=== PATIENT | male | born 1985 | race Caucasian/White ===

== ENCOUNTER 2022-09-15 20:57 | Emergency (ER) | payer SELFPAY ==
[2022-09-15 21:15] VITALS: BP 167/103; PULSE 88; RESP 16; TEMP 98.1
[2022-09-15] MEDS ORDERED: LIDOCAINE 1% INJ 10MG/ML (30 ML VIAL-PF) SQ ONE (22:06)
[2022-09-15] MEDS ORDERED: DIPH,PERTUS(ACELL)TETVAC-LF 0.5 ML VIAL IM ONE (22:48)
--- NOTE | 2022-09-15 23:14 | ED ---
General Adult HPI - General Chief complaint: Skin/Abscess/Foreign Body Stated complaint: Left Ring finger injury Time Seen by Provider: 09/15/22 22:00 Source: patient Mode of arrival: ambulatory Limitations: no limitations - History of Present Illness Initial comments: A 37-year-old male presenting to the ED with a chief complaint of fishhook to left fourth finger. Patient states he was trying to unhook his face and states that the fish flopped causing the "on the other line become embedded into his left fourth finger. Tetanus status unknown. Denies any other injury at this time. No other complaints. - Related Data Previous Rx's Medication Instructions Recorded Cephalexin [Keflex] 500 mg PO Q6HR 5 Days #20 cap 09/15/22 Allergies Allergy/AdvReac Type Severity Reaction Status Date / Time No Known Allergies Allergy Verified 09/15/22 21:15 Review of Systems ROS Statement: Those systems with pertinent positive or pertinent negative responses have been documented in the HPI. ROS Other: All systems not noted in ROS Statement are negative. Past Medical History Additional Past Medical History / Comment(s): vertigo History of Any Multi-Drug Resistant Organisms: None Reported Past Surgical History: No Surgical Hx Reported Past Psychological History: No Psychological Hx Reported Smoking Status: Never smoker Past Alcohol Use History: Rare Past Drug Use History: None Reported General Exam Limitations: no limitations General appearance: alert, in no apparent distress Head exam: Present: atraumatic, normocephalic Respiratory exam: Present: normal lung sounds bilaterally Cardiovascular Exam: Present: regular rate, normal rhythm Extremities exam: Present: other (Paullina in patient's left fourth finger. Strength and sensation intact. Full active flexion.) Neurological exam: Present: alert, oriented X3 Psychiatric exam: Present: normal affect, normal mood Skin exam: Present: warm, dry Course Vital Signs 09/15/22 21:12 Temperature 98.1 F Pulse Rate 88 Respiratory 16 Rate Blood Pressure 167/103 O2 Sat by Pulse 98 Oximetry Procedures - Forgein Body Removal Soft Tissue Site: other (Finger, left fourth) Anesthetic Used: lidocaine 1%, without epi Amount (mLs): 4 (Provided nerve block and local infiltration.) Foreign Body Suspected: Fish Hook Foreign Body Removed: yes Foreign Body Removal Technique: Other (Small incision made with scalpel. Fish hook removed) Patient Tolerated Procedure: well, no complications Additional Comments: 1 simple interrupted suture placed with 5-0 Ethilon. Medical Decision Making - Medical Decision Making Was pt. sent in by a medical professional or institution ([facility], [facility], urgent care, hospital, or prison...) When possible be specific @ -No Did you speak to anyone other than the patient for history (EMS, parent, family, police, friend...)? What history was obtained from this source @ -No Did you review nursing and triage notes (agree or disagree)? Why? @ -I reviewed and agree with nursing and triage notes Were old charts reviewed (outside hosp., previous admission, EMS record, old EKG, old radiological studies, urgent care reports/EKG's, prison records)? Report findings @ -No old charts were reviewed Differential Diagnosis (chest pain, altered mental status, abdominal pain women, abdominal pain men, vaginal bleeding, weakness, fever, dyspnea, syncope, headache, dizziness, GI bleed, back pain, seizure, CVA, palpatations, mental health, musculoskeletal)? @ -Acute tendon injury, infection. This is not meant to be an all-inclusive list. EKG interpreted by me (3pts min.). @ -None X-rays interpreted by me (1pt min.). @ -None done CT interpreted by me (1pt min.). @ -None done U/S interpreted by me (1pt. min.). @ -None done What testing was considered but not performed or refused? (CT, X-rays, U/S, labs)? Why? @ -None What meds were considered but not given or refused? Why? @ -None Did you discuss the management of the patient with other professionals (professionals i.e. [facility], [facility], lab, RT, psych nurse, social group worker, wrapping machine helper, teacher, chief talent officer, case packer and sealer)? Give summary @ -No Was smoking cessation discussed for >3mins.? @ -No Was critical care preformed (if so, how long)? @ -No Were there social determinants of health that impacted care today? How? (Homelessness, low income, unemployed, alcoholism, drug addiction, transportation, low edu. Level, literacy, decrease access to med. care, half-way, rehab)? @ -No Was there de-escalation of care discussed even if they declined (Discuss DNR or withdrawal of care, Hospice)? DNR status @ -No What co-morbidities impacted this encounter? (DM, HTN, Smoking, COPD, CAD, Cancer, CVA, ARF, Chemo, Hep., AIDS, mental health diagnosis, sleep apnea, morbid obesity)? @ -None Was patient admitted / discharged? Hospital course, mention meds given and route, prescriptions, significant lab abnormalities, going to OR and other pertinent info. @ -Discharge. Patient had a foreign body removed please see procedure note for further details. Tetanus updated. Provided antibiotic prophylaxis. Discussed return precautions with patient and patient's who verbalizes agreement. Undiagnosed new problem with uncertain prognosis? @ -No Drug Therapy requiring intensive monitoring for toxicity (Heparin, Nitro, Insulin, Cardizem)? @ -No Were any procedures done? @ -Yes, Please see procedure note further details Diagnosis/symptom? @ -Paullina in left fourth finger Acute, or Chronic, or Acute on Chronic? @ -Acute Uncomplicated (without systemic symptoms) or Complicated (systemic symptoms)? @ -Uncomplicated Side effects of treatment? @ -No Exacerbation, Progression, or Severe Exacerbation? @ -No Poses a threat to life or bodily function? How? (Chest pain, [place], [place], pneumonia, PE, COPD, DKA, ARF, appy, cholecystitis, CVA, Diverticulitis, Homicidal, Suicidal, threat to staff... and all critical care pts) @ -No Disposition Clinical Impression: Fish hook injury of finger of left hand Disposition: HOME SELF-CARE Condition: Good Instructions (If sedation given, give patient instructions): Care For Your Stitches (ED) Prescriptions: Cephalexin [Keflex] 500 mg PO Q6HR 5 Days #20 cap Is patient prescribed a controlled substance at d/c from ED?: No Referrals: None,Stated [Primary Care Provider] - 1-2 days Time of Disposition: 23:16
[2022-09-15] MEDS ORDERED: CEPHALEXIN 500MG STARTER PACK 4 CAP BTL PO STA (23:28)
[2022-09-15] MEDS ORDERED: BACITRACIN OINT 1 EACH PACKET TOPICAL ONE (23:36)
== END 2022-09-15 23:41 | disposition home or self-care (01) ==
LOC: EC 20:57
DX: S60.945A Unspecified superficial injury of left ring finger, initial encounter (principal); W45.8XXA Other foreign body or object entering through skin, initial encounter
CPT/HCPCS: 90715; 99282; 10120; 90471; J2001

== ENCOUNTER 2023-04-18 10:12 | Emergency (ER) | payer OTHER ==
[2023-04-18 10:28] VITALS: RESP 18; TEMP 97.4
[2023-04-18] MEDS ORDERED: KETOROLAC 15 MG/ML 1 ML VIAL IM STA (10:31)
--- NOTE | 2023-04-18 10:33 | ED ---
Back Pain HPI - General Chief Complaint: Back Pain/Injury Stated Complaint: Back Pain Time Seen by Provider: 04/18/23 10:23 Source: patient, family, RN notes reviewed Limitations: no limitations - History of Present Illness Initial Comments: Patient is a 37-year-old male presented to ER with chief complaint of back pain. 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 Patient states over the past couple days pain has increased. No known injuries or traumas. Patient states there is radiating pain down his left leg. He states that he is not able to walk due to the pain. Patient had to have 2 staff members help him out of the car into the ER today. Patient has been taking [id number] pain medication and prescribed Flexeril with no relief. Patient was scheduled to get an MRI of his back today but stated he was unable to make it due to the pain. Seeing Dr. Hobbs. Patient denies any fevers, history of IV drug use, saddle paresthesias, bowel or bladder incontinence. - Related Data Previous Rx's Medication Instructions Recorded Cephalexin [Keflex] 500 mg PO Q6HR 5 Days #20 cap 09/15/22 Lidocaine 4% Patch 1 patch TOPICAL DAILY #10 patch 04/18/23 predniSONE 50 mg PO DAILY #5 tab 04/18/23 Allergies Allergy/AdvReac Type Severity Reaction Status Date / Time No Known Allergies Allergy Verified 04/18/23 10:20 Review of Systems ROS Statement: Those systems with pertinent positive or pertinent negative responses have been documented in the HPI. ROS Other: All systems not noted in ROS Statement are negative. Past Medical History Additional Past Medical History / Comment(s): vertigo History of Any Multi-Drug Resistant Organisms: None Reported Past Surgical History: No Surgical Hx Reported, Orthopedic Surgery Additional Past Surgical History / Comment(s): back surgery 04/2022 Past Psychological History: No Psychological Hx Reported Smoking Status: Never smoker Past Alcohol Use History: Occasional, Rare Past Drug Use History: None Reported General Exam Limitations: physical limitation General appearance: alert, other (Patient appears uncomfortable and in pain) Head exam: Present: atraumatic, normocephalic, normal inspection Neck exam: Present: normal inspection. Absent: tenderness, meningismus, lymphadenopathy Respiratory exam: Present: normal lung sounds bilaterally. Absent: respiratory distress, wheezes, rales, rhonchi, stridor Cardiovascular Exam: Present: regular rate, normal rhythm, normal heart sounds. Absent: systolic murmur, diastolic murmur, rubs, gallop, clicks Back exam: Present: tenderness (Lower thoracic and lumbar spine) Neurological exam: Present: alert, oriented X3, CN II-XII intact Psychiatric exam: Present: normal affect, normal mood Skin exam: Present: warm, dry, intact, normal color. Absent: rash Course Vital Signs 04/18/23 04/18/23 10:16 12:20 Temperature 97.4 F L Pulse Rate 82 68 Respiratory 18 18 Rate Blood Pressure 163/79 148/75 O2 Sat by Pulse 99 99 Oximetry Medical Decision Making - Medical Decision Making Was pt. sent in by a medical professional or institution (, PA, PARTY SUPPLY SPECIALIST, urgent care, hospital, or [place] [facility]...) When possible be specific @ -No Did you speak to anyone other than the patient for history (EMS, parent, family, police, friend...)? What history was obtained from this source @ -Family providing some past medical history and HPI. Did you review nursing and triage notes (agree or disagree)? Why? @ -I reviewed and agree with nursing and triage notes Were old charts reviewed (outside hosp., previous admission, EMS record, old EKG, old radiological studies, urgent care reports/EKG's, [place] [facility] records)? Report findings @ -No old charts were reviewed Differential Diagnosis (chest pain, altered mental status, abdominal pain women, abdominal pain men, vaginal bleeding, weakness, fever, dyspnea, syncope, headache, dizziness, GI bleed, back pain, seizure, CVA, palpatations, mental health, musculoskeletal)? @ -Differential Back Pain: Strain, zoster, cauda equina syndrome, epidural ab scess, vertebral osteomyelitis, discitis, fracture, subluxation, disc herniation, DJD, spinal stenosis, dissection, AAA, pancreatitis, peptic ulcer disease, pyelonephritis, kidney stone, this is not meant to be an all-inclusive list. EKG interpreted by me (3pts min.). @ -None X-rays interpreted by me (1pt min.). @ -None done CT interpreted by me (1pt min.). @ -CT lumbar spine shows disc herniation at L5-S1 with displacement of S1 nerve root. U/S interpreted by me (1pt. min.). @ -None done What testing was considered but not performed or refused? (CT, X-rays, U/S, labs)? Why? @ -None What meds were considered but not given or refused? Why? @ -None Did you discuss the management of the patient with other professionals (professionals i.e. , PA, PARTY SUPPLY SPECIALIST, lab, RT, psych nurse, social insurance administrator, detective supervisor, teacher, chief financial officer, case coordinator)? Give summary @ -No Was smoking cessation discussed for >3mins.? @ -No Was critical care preformed (if so, how long)? @ -No Were there social determinants of health that impacted care today? How? (Homelessness, low income, unemployed, alcoholism, drug addiction, transportation, low edu. Level, literacy, decrease access to med. care, senior care, rehab)? @ - difficulty with medical care access Was there de-escalation of care discussed even if they declined (Discuss DNR or withdrawal of care, Hospice)? DNR status @ -No What co-morbidities impacted this encounter? (DM, HTN, Smoking, COPD, CAD, Cancer, CVA, ARF, Chemo, Hep., AIDS, mental health diagnosis, sleep apnea, morbid obesity)? @ -None Was patient admitted / discharged? Hospital course, mention meds given and route, prescriptions, significant lab abnormalities, going to OR and other pertinent info. @ -Discharge. Patient is a 37-year-old male presented to the ER with chief complaint of back pain. Vitals stable. History and physical exam were completed. No red flag symptoms indicative of cauda equina syndrome. Patient neurovascularly intact. CT lumbar spine shows disc herniation at L5-S1 with displacement of S1 nerve root. Patient received IM Toradol and Norflex in the ER with mild improvement of symptoms. I discussed imaging findings with patient. Patient will have a lidocaine patch and received a Tylenol 3 prior to discharge. Patient will also receive a starter pack of Tylenol 3. Patient prescribed prednisone and lidocaine patches. Advised him to follow-up with PCP and back doctor soon as possible. Return parameters were discussed. Patient be discharged stable condition with follow-up to PCP. Patient expressed understanding and agreement with care plan. Undiagnosed new problem with uncertain prognosis? @ -No Drug Therapy requiring intensive monitoring for toxicity (Heparin, Nitro, Insulin, Cardizem)? @ -No Were any procedures done? @ -No Diagnosis/symptom? @ -Herniated disc L5-S1 with displacement of S1 nerve root Acute, or Chronic, or Acute on Chronic? @ -Chronic Uncomplicated (without systemic symptoms) or Complicated (systemic symptoms)? @ -Uncomplicated Side effects of treatment? @ -No Exacerbation, Progression, or Severe Exacerbation? @ -No Poses a threat to life or bodily function? How? (Chest pain, [place], [place], pneumonia, PE, COPD, DKA, ARF, appy, cholecystitis, CVA, Diverticulitis, Homicidal, Suicidal, threat to staff... and all critical care pts) @ -No - Radiology Data Radiology results: report reviewed, image reviewed Disposition Clinical Impression: Herniation of intervertebral disc between L5 and S1 Disposition: HOME SELF-CARE Condition: Stable Instructions (If sedation given, give patient instructions): Chronic Back Pain (DC), Back Pain (ED) Additional Instructions: Please follow-up with PCP in the next 1 to 2 days. Return to ER for any new or worsening symptoms. Prescriptions: Lidocaine 4% Patch 1 patch TOPICAL DAILY #10 patch predniSONE 50 mg PO DAILY #5 tab Is patient prescribed a controlled substance at d/c from ED?: No Referrals: Nonstaff,Physician [Primary Care Provider] - 1-2 days Time of Disposition: 11:55
[2023-04-18] MEDS: ORPHENADRINE 30 MG/ML 2 ML VIAL IM STA (10:43)
--- NOTE | 2023-04-18 11:34 | CT ---
EXAMINATION TYPE: CT lumbar spine wo con DATE OF EXAM: 04/18/2023 COMPARISON: None HISTORY: pain CT DLP: 914.6 mGycm CONTRAST: None TECHNIQUE: CT of the lumbar spine is performed on a spiral scan at 3 mm thick sections. Reconstructed images are performed in the coronal and sagittal planes. FINDINGS: T12-L1: No focal disc herniation or significant disc bulge is evident. No spinal canal stenosis or neural foraminal stenosis is present. L1-L2: No focal disc herniation or significant disc bulge is evident. No spinal canal stenosis or n eural foraminal stenosis is present L2-L3: No focal disc herniation or significant disc bulge is evident. No spinal canal stenosis or n eural foraminal stenosis is present L3-L4: No focal disc herniation or significant disc bulge is evident. No spinal canal stenosis or n eural foraminal stenosis is present L4-L5: Broad-based disc bulge has mild anterior thecal sac flattening. No AP spinal canal stenosis is present. Neural foramen are patent. L5-S1: There is a left paracentral moderately large disc herniation. This is displacing the exiting l eft S1 nerve root posteriorly. Moderate to severe left foraminal stenosis is present. Moderate right foraminal narrowing may be present. Vertebral alignment appears normal. Vertebral body heights are preserved. Disc heights are preserved. Couple of punctate 1 mm nonobstructing renal stones may be present within the left kidney. Note is ma de of right renal cortical cyst. IMPRESSION: 1. Moderately large left paracentral L5-S1 disc herniation with displacement of the exiting left S1 n erve root. Correlate with radicular symptoms.
[2023-04-18] MEDS ORDERED: Acetaminophen-Codeine 300-30mg TAB PO STA (11:55)
[2023-04-18] MEDS ORDERED: LIDOCAINE 4% PATCH TOPICAL ONE (11:55)
[2023-04-18] MEDS ORDERED: ACET/COD 300 MG/30 MG STARTER PACK 6 TAB BTL PO STA (11:55)
[2023-04-18 12:36] VITALS: BP 148/75; PULSE 68
== END 2023-04-18 12:24 | disposition home or self-care (01) ==
LOC: SUPCPDRO 10:12 → EC 10:12
DX: M51.17 Intervertebral disc disorders with radiculopathy, lumbosacral region (principal)
CPT/HCPCS: 72131; 99283; 96372 ×2; J2360; J1885

== ENCOUNTER 2023-12-17 23:38 | Emergency (ER) | payer OTHER ==
[2023-12-17 23:45] VITALS: TEMP 98.1
[2023-12-18] MEDS: ONDANSETRON 4 MG/2 ML VIAL IVP STA (00:34)
[2023-12-18] MEDS: HYDROmorphone 1 MG/ML 1 ML SYRINGE IVP STA (00:37)
[2023-12-18 01:19] LABS: Basophils # (A) 0.1 k/uL (0-0.2); Basophils % (A) 1 %; Eosinophils # (A) 0.1 k/uL (0-0.7); Eosinophils % (A) 1 %; HCT 38.4 % (39.0-53.0); HGB 12.4 gm/dL (13.0-17.5); Lymphocytes % (A) 18 %; MCHC 32.4 g/dL (31.0-37.0); MCV 86.4 fL (80.0-100.0); Mean Platelet Volume 8.2; Monocytes # (A) 0.5 k/uL (0-1.0); Monocytes % (A) 5 %; Neutrophils % (A) 74 %; Platelet Count 267 k/uL (150-450); RBC 4.44 m/uL (4.30-5.90); RDW 12.4 % (11.5-15.5); WBC 10.8 k/uL (3.8-10.6)
--- NOTE | 2023-12-18 01:27 | CT ---
EXAM: CT Lumbar Spine With Intravenous Contrast CLINICAL HISTORY: ITS.REASON CT Reason: pain, s/p anterior fusion TECHNIQUE: Axial computed tomography images of the lumbar spine with intravenous contrast. CTDI is 21.1 mGy and DLP is 1241 mGy-cm. This CT exam was performed using one or more of the following dose reduction techniques: automated exposure control, adjustment of the mA and/or kV according to patient size, and/or use of iterative reconstruction technique. COMPARISON: No relevant prior studies available. FINDINGS: Vertebrae: Unremarkable. No acute fracture. Discs/spinal canal/neural foramina: Anterior lumbosacral fusion and disc spacer at L5-S1. No spinal canal stenosis. Soft tissues: Unremarkable. Intraperitoneal space: Indeterminate fluid collection in the LEFT pelvis, partially included in the [id number]. Correlate with the concomitant CT scan of the abdomen and pelvis. IMPRESSION: 1. Indeterminate fluid collection in the LEFT pelvis, partially included in the [id number]. Correlate with the concomitant CT scan of the abdomen and pelvis. 2. Anterior lumbosacral fusion and disc spacer at L5-S1.
[2023-12-18 01:36] LABS: ALT 21 U/L (4-49); AST 24 U/L (17-59); African American GFR (CKD) >90 (>60 ml/min/1.73 sqM); Albumin 3.8 g/dL (3.5-5.0); Alkaline Phosphatase 93 U/L (38-126); Anion Gap 5 mmol/L; Blood Urea Nitrogen 14 mg/dL (9-20); Calcium 9.2 mg/dL (8.4-10.2); Carbon Dioxide 28 mmol/L (22-30); Chloride 104 mmol/L (98-107); Glucose 150 mg/dL (74-99); Non-African American GFR(CKD) >90 (>60 ml/min/1.73 sqM); Potassium 4.1 mmol/L (3.5-5.1); Sodium 137 mmol/L (137-145); Total Bilirubin 0.5 mg/dL (0.2-1.3); Total Protein 6.7 g/dL (6.3-8.2)
--- NOTE | 2023-12-18 01:56 | CT ---
EXAM: CT Abdomen and Pelvis With Intravenous Contrast CLINICAL HISTORY: ITS.REASON CT Reason: Pt had lumbar surgery in September with post op bleeding complications due to damage during surgery. Pt is having extreme pain that radiates to back and has testicle swelling. TECHNIQUE: Axial computed tomography images of the abdomen and pelvis with intravenous contrast. CTDI is 20 mGy and DLP is 730 mGy-cm. This CT exam was performed using one or more of the following dose reduction techniques: automated exposure control, adjustment of the mA and/or kV according to patient size, and/or use of iterative reconstruction technique. COMPARISON: None FINDINGS: Lung bases: Unremarkable. No mass. No consolidation. ABDOMEN: Liver: Unremarkable. No mass. Gallbladder and bile ducts: Unremarkable. No calcified stones. No ductal dilation. Pancreas: Unremarkable. No mass. No ductal dilation. Spleen: Unremarkable. No splenomegaly. Adrenals: Unremarkable. No mass. Kidneys and ureters: Bilateral renal cysts. No further follow-up necessary. No hydronephrosis or obstructing ureteral stone. Stomach and bowel: Evaluation of the stomach is limited by underdistention. No mucosal thickening. No bowel obstruction or inflammation. PELVIS: Appendix: Normal appendix. Bladder: Unremarkable. No mass. Reproductive: Unremarkable as visualized. ABDOMEN and PELVIS: Intraperitoneal space: Unremarkable. No free air. No significant fluid collection. Bones/joints: Anterior fusion changes at L5-S1. No acute fracture. No dislocation. Soft tissues: Slightly hyperdense structure in the left lower quadrant just anterior to the left psoas muscle, measuring approximately 5.2 x 7.4 x 11.5 cm. This may represent evolving hematoma. Clip seen along the structure. Small amount of fluid and fat stranding in the lower anterior abdominal wall which could represent postoperative seromas and edema. Small fat-containing right inguinal hernia. Small fat-containing umbilical hernia. Vasculature: Unremarkable. No abdominal aortic aneurysm. Lymph nodes: Unremarkable. No enlarged lymph nodes. IMPRESSION: 1. Slightly hyperdense structure in the left lower quadrant just anterior to the left psoas muscle, measuring approximately 5.2 x 7.4 x 11. 5 cm. This may represent evolving hematoma. Clips seen along the structure. 2. Small amount of fluid and fat stranding in the lower anterior abdominal wall which could represent postoperative seromas and edema.
--- NOTE | 2023-12-18 02:09 | ED ---
Back Pain HPI - General Chief Complaint: Back Pain/Injury Stated Complaint: Back pain Time Seen by Provider: 12/17/23 23:56 Source: patient, RN notes reviewed Limitations: no limitations - History of Present Illness Initial Comments: 38-year-old male presents emergency department complaint of back pain. Patient states he had surgery in September. Patient states that he had an anterior approach for a fusion. He states that he was post to have posterior aspect but was not completed secondary to complications he states he had internal bleeding no edges remaining large hematoma. Patient states he had a revision of this last week. He states that today he developed pain right and his spine he has no abdominal complaints. Denies any dizziness no bowel, bladder and cons retention no lower extremity weakness or paresthesias he states he is not have any current pain meds. - Related Data Previous Rx's Medication Instructions Recorded Cephalexin [Keflex] 500 mg PO Q6HR 5 Days #20 cap 09/15/22 Lidocaine 4% Patch 1 patch TOPICAL DAILY #10 patch 04/18/23 predniSONE 50 mg PO DAILY #5 tab 04/18/23 HYDROcodone/APAP 7.5-325MG [[place] 1 tab PO Q6HR PRN 3 Days #12 tab 12/18/23 7.5-325] Allergies Allergy/AdvReac Type Severity Reaction Status Date / Time No Known Allergies Allergy Verified 12/17/23 23:40 Review of Systems ROS Statement: Those systems with pertinent positive or pertinent negative responses have been documented in the HPI. ROS Other: All systems not noted in ROS Statement are negative. Past Medical History Additional Past Medical History / Comment(s): vertigo History of Any Multi-Drug Resistant Organisms: None Reported Past Surgical History: Orthopedic Surgery Additional Past Surgical History / Comment(s): back surgery 04/2022,04/2023, 09/2023 Past Psychological History: Anxiety, Depression, PTSD Smoking Status: Never smoker Past Alcohol Use History: None Reported Past Drug Use History: None Reported General Exam Limitations: no limitations General appearance: alert, in no apparent distress Head exam: Present: atraumatic, normocephalic, normal inspection Neck exam: Present: normal inspection, full ROM. Absent: tenderness, meningismus, lymphadenopathy Respiratory exam: Present: normal lung sounds bilaterally. Absent: respiratory distress, wheezes, rales, rhonchi, stridor Cardiovascular Exam: Present: regular rate, normal rhythm, normal heart sounds. Absent: systolic murmur, diastolic murmur, rubs, gallop, clicks GI/Abdominal exam: Present: soft, normal bowel sounds, other (Inferior umbilical incision with sutures in place no purulent drainage no erythema). Absent: distended, tenderness, guarding, rebound, rigid Extremities exam: Present: normal inspection, full ROM, normal capillary refill. Absent: tenderness, pedal edema, joint swelling, calf tenderness Back exam: Present: tenderness, paraspinal tenderness. Absent: full ROM, vertebral tenderness Neurological exam: Present: reflexes normal. Absent: motor sensory deficit Course Vital Signs 12/17/23 23:40 Temperature 98.1 F Pulse Rate 68 Respiratory 16 Rate Blood Pressure 153/80 O2 Sat by Pulse 100 Oximetry Medical Decision Making - Medical Decision Making Was pt. sent in by a medical professional or institution (, PA, GRAPPLE SKIDDER OPERATOR, urgent care, hospital, or fdc...) When possible be specific @ -No Did you speak to anyone other than the patient for history (EMS, parent, family, police, friend...)? What history was obtained from this source @ -No Did you review nursing and triage notes (agree or disagree)? Why? @ -I reviewed and agree with nursing and triage notes Were old charts reviewed (outside hosp., previous admission, EMS record, old EKG, old radiological studies, urgent care reports/EKG's, fdc records)? Report findings @ -No old charts were reviewed Differential Diagnosis (chest pain, altered mental status, abdominal pain women, abdominal pain men, vaginal bleeding, weakness, fever, dyspnea, syncope, headache, dizziness, GI bleed, back pain, seizure, CVA, palpatations, mental health, musculoskeletal)? @ -Differential Back Pain: Strain, zoster, cauda equina syndrome, epidural abscess, vertebral osteomyelitis, discitis, fracture, subluxation, disc herniation, DJD, spinal stenosis, dissection, AAA, pancreatitis, peptic ulcer disease, pyelonephritis, kidney stone, this is not meant to be an all-inclusive list. EKG interpreted by me (3pts min.). @ -None X-rays interpreted by me (1pt min.). @ -None done CT interpreted by me (1pt min.). @ - CT abdomen pelvis showing intra-abdominal hematoma no active bleeding CT lumbar spine showing postsurgical changes no acute process U/S interpreted by me (1pt. min.). @ -None done What testing was considered but not performed or refused? (CT, X-rays, U/S, labs)? Why? @ -None What meds were considered but not given or refused? Why? @ -None Did you discuss the management of the patient with other professionals (professionals i.e. Dr., PA, GRAPPLE SKIDDER OPERATOR, lab, RT, psych nurse, administrator social welfare, renovation plant supervisor, teacher, photographic intelligence officer, case maker)? Give summary @ -No Was smoking cessation discussed for >3mins.? @ -No Was critical care preformed (if so, how long)? @ -No Were there social determinants of health that impacted care today? How? (Homelessness, low income, unemployed, alcoholism, drug addiction, transportation, low edu. Level, literacy, decrease access to med. care, shelter, rehab)? @ -No Was there de-escalation of care discussed even if they declined (Discuss DNR or withdrawal of care, Hospice)? DNR status @ -No What co-morbidities impacted this encounter? (DM, HTN, Smoking, COPD, CAD, Cancer, CVA, ARF, Chemo, Hep., AIDS, mental health diagnosis, sleep apnea, morbid obesity)? @ -None Was patient admitted / discharged? Hospital course, mention meds given and route, prescriptions, significant lab abnormalities, going to OR and other p ertinent info. @ -Discharge patient's pain is improved patient will follow-up with surgeon tomorrow patient has no red flag symptoms. He has a known intra-abdominal hematoma which is the same dimensions as he had prior. Undiagnosed new problem with uncertain prognosis? @ -No Drug Therapy requiring intensive monitoring for toxicity (Heparin, Nitro, Insulin, Cardizem)? @ -No Were any procedures done? @ -No Diagnosis/symptom? @ -Back pain Acute, or Chronic, or Acute on Chronic? @ -Acute Uncomplicated (without systemic symptoms) or Complicated (systemic symptoms)? @ -Uncomplicated Side effects of treatment? @ -No Exacerbation, Progression, or Severe Exacerbation? @ -No Poses a threat to life or bodily function? How? (Chest pain, [place], [place], pneumonia, PE, COPD, DKA, ARF, appy, cholecystitis, CVA, Diverticulitis, Homicidal, Suicidal, threat to staff... and all critical care pts) @ -No - Lab Data Result diagrams: 12/18/23 00:34 12/18/23 00:34 Lab Results 12/18/23 12/18/23 12/18/23 Range/Units 00:34 00:34 00:34 WBC 10.8 H (3.8-10.6) k/uL RBC 4.44 (4.30-5.90) m/uL Hgb 12.4 L (13.0-17.5) gm/dL Hct 38.4 L (39.0-53.0) % MCV 86.4 (80.0-100.0) fL MCH 28.0 (25.0-35.0) pg MCHC 32.4 (31.0-37.0) g/dL RDW 12.4 (11.5-15.5) % Plt Count 267 (150-450) k/uL MPV 8.2 Neutrophils % 74 % Lymphocytes % 18 % Monocytes % 5 % Eosinophils % 1 % Basophils % 1 % Neutrophils # 8.0 H (1.3-7.7) k/uL Lymphocytes # 2.0 (1.0-4.8) k/uL Monocytes # 0.5 (0-1.0) k/uL Eosinophils # 0.1 (0-0.7) k/uL Basophils # 0.1 (0-0.2) k/uL Sodium 137 (137-145) mmol/L Potassium 4.1 (3.5-5.1) mmol/L Chloride 104 (98-107) mmol/L Carbon Dioxide 28 (22-30) mmol/L Anion Gap 5 mmol/L BUN 14 (9-20) mg/dL Creatinine 0.82 (0.66-1.25) mg/dL Est GFR (CKD-EPI)AfAm >90 (>60 ml/min/1.73 sqM) Est GFR (CKD-EPI)NonAf >90 (>60 ml/min/1.73 sqM) Glucose 150 H (74-99) mg/dL Plasma Lactic Acid [place] 1.7 (0.7-2.0) mmol/L Calcium 9.2 (8.4-10.2) mg/dL Total Bilirubin 0.5 (0.2-1.3) mg/dL AST 24 (17-59) U/L ALT 21 (4-49) U/L Alkaline Phosphatase 93 (38-126) U/L Total Protein 6.7 (6.3-8.2) g/dL Albumin 3.8 (3.5-5.0) g/dL Disposition Clinical Impression: Back pain, Postoperative hematoma Disposition: HOME SELF-CARE Condition: Stable Instructions (If sedation given, give patient instructions): Acute Low Back Pain (ED) Additional Instructions: Please contact your surgeon tomorrow. Please return to the Emergency Department if symptoms worsen or any other concerns. Prescriptions: HYDROcodone/APAP 7.5-325MG [[place] 7.5-325] 1 tab PO Q6HR PRN 3 Days #12 tab PRN Reason: Pain Is patient prescribed a controlled substance at d/c from ED?: No Referrals: Ryanne Hobbs DO [Primary Care Provider] - 1-2 days Time of Disposition: 02:07
[2023-12-18] MEDS: HYDROcodone/APAP 7.5-325MG 1 EACH TAB PO ONE (02:18)
[2023-12-18 02:22] VITALS: BP 130/78; PULSE 59; RESP 18
== END 2023-12-18 02:24 | disposition home or self-care (01) ==
LOC: EC 23:38
DX: G89.18 Other acute postprocedural pain (principal)
CPT/HCPCS: 36415; 72132; 74177; 80053; 83605; 85025; 96374; 96375; 99284